=== PATIENT | female | born 2000 | race Caucasian/White ===

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

== ENCOUNTER 2020-01-29 10:11 | Emergency (ER) | payer MEDICAID ==
--- NOTE | 2020-01-29 11:02 | RADIOLOGY REPORT (SQ) ---
EXAM DESCRIPTION: CHEST SINGLE VIEW IMAGES COMPLETED DATE/TIME: 01/29/2020 10:53 am REASON FOR STUDY: SOB COMPARISON: 02/22/2010. EXAM PARAMETERS: NUMBER OF VIEWS: One view. TECHNIQUE: Single frontal radiographic view of the chest acquired. RADIATION DOSE: NA LIMITATIONS: None. FINDINGS: LUNGS AND PLEURA: No opacities, masses or pneumothorax. No pleural effusion. MEDIASTINUM AND HILAR STRUCTURES: No masses. Contour normal. HEART AND VASCULAR STRUCTURES: Heart normal in size. Normal vasculature. BONES: No acute findings. HARDWARE: None in the chest. OTHER: No other significant finding. IMPRESSION: NO ACUTE RADIOGRAPHIC FINDING IN THE CHEST. TECHNICAL DOCUMENTATION: JOB ID: [id number] 2010 [employer]- All Rights Reserved Reading location - IP/workstation name: [email or web address]
[2020-01-29] MEDS ORDERED: NORMAL SALINE 1000 ML 1,000 ML IV ONE ×2 (13:41→15:50)
--- NOTE | 2020-01-29 14:05 | ER Document Report ---
ED Respiratory Problem - General Chief Complaint: Shortness Of Breath Stated Complaint: SHORT OF BREATH,COUGH,CONGESTION Time Seen by Provider: 01/29/20 13:01 Primary Care Provider: [facility] [Provider Group] - Follow up tomorrow Mode of Arrival: Ambulatory Information source: Patient Notes: Patient states that she recently traveled to [place] and was around her father on 2 separate days. Patient states that he did test positive for COVID recently and had been symptomatic with a fever. Patient was last around him 4 days ago. Patient reports cough and shortness of breath that started yesterday. Patient does complain of sore throat as well. Patient denies any long distance travel, recent surgeries or immobilization. TRAVEL OUTSIDE OF THE [place] IN LAST 30 DAYS: No - HPI Patient complains to provider of: Cough, Short of breath Quality of pain: Achy Pain Level: 1 Associated symptoms: Cough, Short of breath. denies: Wheezing Similar symptoms previously: No Recently seen / treated by doctor: No - Related Data Allergies/Adverse Reactions: Penicillins Allergy (Verified 07/05/12 13:28) red meat Adverse Reaction (Intermediate, Uncoded 07/18/18 22:35) Past Medical History - General Information source: Patient - Social History Smoking Status: Never Smoker Frequency of alcohol use: None Drug Abuse: None Occupation: none Family History: Reviewed & Not Pertinent Renal/ Medical History: Denies: Hx Peritoneal Dialysis GI Medical History: Reports: Hx Gastroesophageal Reflux Disease Psychiatric Medical History: Reports: Hx Depression Past Surgical History: Reports: Hx Cholecystectomy - Immunizations Immunizations up to date: Yes Hx Diphtheria, Pertussis, Tetanus Vaccination: Yes Review of Systems - Review of Systems Constitutional: No symptoms reported. denies: Fever EENT: Throat pain Cardiovascular: No symptoms reported. denies: Chest pain Respiratory: Cough, Short of breath Gastrointestinal: No symptoms reported. denies: Vomiting Genitourinary: No symptoms reported Female Genitourinary: No symptoms reported Musculoskeletal: No symptoms reported Skin: No symptoms reported Hematologic/Lymphatic: No symptoms reported Neurological/Psychological: No symptoms reported Physical Exam - Vital signs Vitals: Temp Pulse Resp BP Pulse Ox 98.7 F 109 H 20 116/70 98 01/29/20 10:16 01/29/20 10:16 01/29/20 10:16 01/29/20 10:16 01/29/20 10:16 - General General appearance: Appears well, Alert In distress: None - HEENT Head: Normocephalic, Atraumatic Eyes: Normal Conjunctiva: Normal Nasal: Normal Mouth/Lips: Normal Mucous membranes: Normal Pharynx: Erythema. No: Retropharyngeal abscess, Tonsillar hypertrophy, Potential airway comprom. Neck: Normal, Supple. No: Lymphadenopathy - Respiratory Respiratory status: No respiratory distress Chest status: Tender Breath sounds: Nonproductive cough. No: Rales, Rhonchi, Stridor, Wheezing Chest palpation: Normal - Cardiovascular Rhythm: Tachycardia Heart sounds: S1 appreciated, S2 appreciated Murmur: No - Abdominal Inspection: Normal Distension: No distension Bowel sounds: Normal Tenderness: Nontender Organomegaly: No organomegaly - Back Back: Normal, Nontender. No: CVA tenderness - Extremities General upper extremity: Normal inspection, Normal strength General lower extremity: Normal inspection, Normal strength. No: Edema - Neurological Neuro grossly intact: Yes Cognition: Normal [place] Coma Scale Eye Opening: Spontaneous [place] Coma Scale Verbal: Oriented [place] Coma Scale Motor: Obeys Commands [place]roy Coma Scale Total: 15 - Psychological Associated symptoms: Normal affect, Normal mood - Skin Skin Temperature: Warm Skin Moisture: Dry Skin Color: Normal Course - Re-evaluation Re-evalutation: 01/29/20 17:46 Patient reports feeling better at this time. Chest x-ray reviewed, no concern for pneumonia. No elevation in d-dimer test at this time. No concern for PE. Patient's tachycardia has improved. Patient does have recent exposure to the coronavirus and has been tested. Discussed worsening signs or symptoms that patient should return immediately for. Patient verbalized understanding and is agreeable with plan of care. The patient was evaluated during the global Covid 19 pandemic, and that diagnosis was suspected/considered upon their initial presentation. Their evaluation, treatment and testing was consistent with current guidelines for patients who present with complaints or symptoms that may be related to Covid 19. Patient presents with upper respiratory symptoms worrisome for possible Covid 19. Patient does not have emergency worrying symptoms such as difficulty breathing, shortness of breath, chest pain, pressure, confusion or cyanosis. P atient appears suitable for discharge as they are not of an advanced age, do not have any chronic medical conditions such as diabetes, CAD, immune deficiency, chronic lung disease or chronic kidney disease. Patient's vital signs are stable and patient is nontoxic in appearance. Good return precautions have been discussed with patient, patient verbalized understanding and is agreeable with discharge plan of care at this time. - Vital Signs Vital signs: Temp Pulse Resp BP Pulse Ox 98.5 F 70 16 105/56 L 100 01/29/20 17:31 01/29/20 17:31 01/29/20 17:31 01/29/20 17:31 01/29/20 17:31 - Laboratory Result Diagrams: 01/29/20 14:03 01/29/20 14:03 Laboratory results interpreted by me: 01/29/20 14:03 Sodium 136.5 L Labs- All tests 24 hr 01/29/20 01/29/20 01/29/20 14:03 14:03 14:03 WBC 8.9 RBC 4.35 Hgb 13.6 Hct 39.1 MCV 90 MCH 31.2 MCHC 34.7 RDW 12.4 Plt Count 207 Lymph % (Auto) 24.6 Finney % (Auto) 7.1 Eos % (Auto) 5.2 Baso % (Auto) 0.7 Absolute Neuts (auto) 5.6 Absolute Lymphs (auto) 2.2 Absolute Monos (auto) 0.6 Absolute Eos (auto) 0.5 Absolute Basos (auto) 0.1 Seg Neutrophils % 62.4 D-Dimer < 0.27 Sodium 136.5 L Potassium 4.7 Chloride 104 Carbon Dioxide 27 Anion Gap 6 BUN 7 Creatinine 0.59 Est GFR ( Amer) > 60 Est GFR (MDRD) Non-Af > 60 Glucose 82 Calcium 9.6 Total Bilirubin 0.6 Direct Bilirubin 0.0 Neonat Total Bilirubin Not Reportable Neonat Direct Bilirubin Not Reportable Neonat Indirect Bili Not Reportable AST 23 ALT 15 Alkaline Phosphatase 64 Total Protein 7.9 Albumin 4.7 Group A Strep Rapid 01/29/20 14:03 WBC RBC Hgb Hct MCV MCH MCHC RDW Plt Count Lymph % (Auto) Finney % (Auto) Eos % (Auto) Baso % (Auto) Absolute Neuts (auto) Absolute Lymphs (auto) Absolute Monos (auto) Absolute Eos (auto) Absolute Basos (auto) Seg Neutrophils % D-Dimer Sodium Potassium Chloride Carbon Dioxide Anion Gap BUN Creatinine Est GFR ( Amer) Est GFR (MDRD) Non-Af Glucose Calcium Total Bilirubin Direct Bilirubin Neonat Total Bilirubin Neonat Direct Bilirubin Neonat Indirect Bili AST ALT Alkaline Phosphatase Total Protein Albumin Group A Strep Rapid NEGATIVE - Diagnostic Test Radiology reviewed: Reports reviewed Discharge - Discharge Clinical Impression: Exposure to COVID-19 virus, Cough, Sore throat Condition: Stable Disposition: HOME, SELF-CARE Instructions: COVID-19 Guidance for Persons Under Investigation, Upper Respiratory Illness ([facility]) Additional Instructions: Return immediately for any new or worsening symptoms Followup with your primary care provider, call tomorrow to make a followup appointment Home quarantine per guidelines Referrals: [facility] [Provider Group] - Follow up tomorrow
[2020-01-29 14:24] LABS: ABSOLUTE BASOPHILS # (AUTO) 0.1 10^3/uL (0.0-0.2); ABSOLUTE EOSINOPHILS # (AUTO) 0.5 10^3/uL (0.0-0.6); ABSOLUTE LYMPHOCYTES (AUTO) 2.2 10^3/uL (0.5-4.7); ABSOLUTE MONOCYTES (AUTO) 0.6 10^3/uL (0.1-1.4); ABSOLUTE NEUT (AUTO) 5.6 10^3/uL (1.7-8.2); BASOPHILS % (AUTO) 0.7 % (0-2); EOSINOPHILS % (AUTO) 5.2 % (0-6); HEMATOCRIT 39.1 % (36.0-47.0); HEMOGLOBIN 13.6 g/dL (12.0-15.5); LYMPHOCYTES % (AUTO) 24.6 % (13-45); MEAN CORPUSCULAR HEMOGLOBIN 31.2 pg (27.0-33.4); MEAN CORPUSCULAR HGB CONC 34.7 g/dL (32.0-36.0); MEAN CORPUSCULAR VOLUME 90 fl (80-97); MONOCYTES % (AUTO) 7.1 % (3-13); PLATELET COUNT 207 10^3/uL (150-450); RED BLOOD COUNT 4.35 10^6/uL (3.72-5.28); RED CELL DISTRIBUTION WIDTH 12.4 % (11.5-14.0); SEGMENTED NEUTROPHILS % (AUTO) 62.4 % (42-78); TOTAL CELLS COUNTED % (AUTO) 100 %; WHITE BLOOD COUNT 8.9 10^3/uL (4.0-10.5)
[2020-01-29 14:44] LABS: ALBUMIN 4.7 g/dL (3.7-5.6); ALKALINE PHOSPHATASE 64 U/L (50-135); ANION GAP 6 (5-19); ASPARTATE AMINO TRANSFERASE 23 U/L (5-30); BILIRUBIN,TOTAL 0.6 mg/dL (0.2-1.3); BLOOD UREA NITROGEN 7 mg/dL (7-20); CALCIUM 9.6 mg/dL (8.4-10.2); CARBON DIOXIDE 27 mmol/L (22-30); CHLORIDE 104 mmol/L (98-107); GLUCOSE 82 mg/dL (75-110); POTASSIUM 4.7 mmol/L (3.6-5.0); TOTAL PROTEIN 7.9 g/dL (6.3-8.2)
[2020-01-29] MEDS ORDERED: ACETAMINOPHEN 325 MG TABLET PO ONE (15:50)
[2020-01-29 17:33] VITALS: BP 105/56
== END 2020-01-29 18:00 | disposition home or self-care (01) ==
LOC: ER 10:11
DX: R05 Cough (principal); J02.9 Acute pharyngitis, unspecified; R00.0 Tachycardia, unspecified; Z88.0 Allergy status to penicillin; Z20.828 Contact with and (suspected) exposure to other viral communicable diseases
CPT/HCPCS: 99283; 96360; 96361; 36415; 87070; 87880; 85025; 87635; 80053; 85379; 71045; J3490; J7030; C9803